=== PATIENT | male | born 1990 | race Asian ===

== ENCOUNTER 2018-07-16 12:54 | Emergency (ER) | payer OTHER ==
[~2018-07-16] VITALS: Ht 177.8 cm; Wt 99.8 kg
[2018-07-16 13:28] VITALS: BP 120/82; TEMP 98.8
== END 2018-07-16 14:20 | disposition home or self-care (01) ==
LOC: ED 12:54
DX: T63.301A Toxic effect of unspecified spider venom, accidental (unintentional), initial encounter (principal); L03.116 Cellulitis of left lower limb; L03.115 Cellulitis of right lower limb
CPT/HCPCS: 99282

== ENCOUNTER 2018-12-02 20:22 | Emergency (ER) | payer OTHER ==
[~2018-12-02] VITALS: Ht 33 cm; Wt 0.5 kg
[2018-12-02 21:09] LABS: PLATELET COUNT 167 K/uL (142-355)
[2018-12-02 21:10] LABS: POTASSIUM 3.3 mmol/L (3.6-5.2)
[2018-12-02 22:57] VITALS: BP 128/75; TEMP 100.3
== END 2018-12-02 22:57 | disposition home or self-care (01) ==
LOC: ED 20:22
PROVIDERS: Emergency Medicine
DX: J40 Bronchitis, not specified as acute or chronic (principal); J06.9 Acute upper respiratory infection, unspecified; F17.210 Nicotine dependence, cigarettes, uncomplicated
CPT/HCPCS: 80053; 80307; 81000; 82550; 82553; 83605; 84484; 85027; 87040; 87502; 87651; 96360; 96361; 96375; 96376; 99284; J1885

== ENCOUNTER 2019-03-08 14:32 | Emergency (ER) | payer OTHER ==
[~2019-03-08] VITALS: Ht 180.3 cm; Wt 72.6 kg
[2019-03-08 15:45] VITALS: BP 119/68; TEMP 98.2
== END 2019-03-08 15:45 | disposition home or self-care (01) ==
LOC: ED 14:32
DX: L03.116 Cellulitis of left lower limb (principal)
CPT/HCPCS: 99282

== ENCOUNTER 2019-03-11 17:18 | Emergency (ER) | payer OTHER ==
[~2019-03-11] VITALS: Ht 180.3 cm; Wt 72.6 kg
[2019-03-11 17:30] VITALS: TEMP 98.2
[2019-03-11 18:03] LABS: PLATELET COUNT 151 K/uL (142-355)
[2019-03-11 18:14] LABS: POTASSIUM 4.3 mmol/L (3.6-5.2)
[2019-03-11 18:18] LABS: PARTIAL THROMBOPLASTIN TIME 28.1 SECONDS (24.5-33.6)
[2019-03-11 19:19] VITALS: BP 124/71
== END 2019-03-11 19:20 | disposition home or self-care (01) ==
LOC: ED 17:18
PROVIDERS: Hospitalist
PROC: 0H9LXZZ Drainage of Left Lower Leg Skin, External Approach (ICD-10-PCS; principal; 2019-03-11)
DX: L02.416 Cutaneous abscess of left lower limb (principal)
CPT/HCPCS: 80048; 85027; 85610; 85730; 96365; 96375; 99284; J1885; J3370

== ENCOUNTER 2022-02-13 16:42 | Emergency (ER) | payer OTHER ==
[~2022-02-13] VITALS: Ht 180.3 cm; Wt 72.6 kg
[2022-02-13 16:46] VITALS: BP 150/93; TEMP 99.6
[2022-02-13 17:12] LABS: PLATELET COUNT 190 K/uL (142-355)
[2022-02-13 17:14] LABS: POTASSIUM 3.1 mmol/L (3.6-5.2)
[2022-02-13 17:20] LABS: PARTIAL THROMBOPLASTIN TIME 26.7 SECONDS (24.5-33.6)
== END 2022-02-13 18:06 | disposition home or self-care (01) ==
LOC: ED 16:42
PROVIDERS: Family Medicine
DX: R07.89 Other chest pain (principal); E87.6 Hypokalemia; F41.8 Other specified anxiety disorders; R10.13 Epigastric pain
CPT/HCPCS: 36415; 80053; 80307; 81002; 82150; 82550; 84484; 85027; 85379; 85610; 85730; 93005; 96374; 99284; J1885